=== PATIENT | female | born 1970 | race Caucasian/White ===

== ENCOUNTER 2019-05-10 07:00 | Inpatient (IN) | payer OTHER ==
[~2019-05-10] VITALS: Ht 165.1 cm; Wt 90.3 kg
== END 2019-05-17 08:46 | disposition home or self-care (01) | DRG 743 ==
LOC: EDSTATUS 07:00 → ADM 07:00 → OB/GYN 05-14 06:21 → O/R 05-14 06:21 → SURH 05-14 07:00 → OB/GYN 05-14 13:28
PROVIDERS: ADMIT Obstetrics & Gynecology
PROC: 0UT70ZZ Resection of Bilateral Fallopian Tubes, Open Approach (ICD-10-PCS; 2019-05-14)
PROC: 0UT90ZZ Resection of Uterus, Open Approach (ICD-10-PCS; principal; 2019-05-14 08:30)
DX: D25.1 Intramural leiomyoma of uterus (principal); D25.2 Subserosal leiomyoma of uterus; N80.0 Endometriosis of uterus

== ENCOUNTER 2020-03-11 05:47 | Emergency (ER) | payer OTHER ==
[~2020-03-11] VITALS: Ht 165.1 cm; Wt 90.7 kg
[2020-03-11] MEDS ORDERED: DICLOFENAC SOD100 GM (06:02)
[2020-03-11] MEDS ORDERED: HYDROXYCHLOROQ200 MG (06:02)
[2020-03-11] MEDS ORDERED: AMOX-CLAV 875-1 EACH PO (07:09)
== END 2020-03-11 07:28 | disposition home or self-care (01) ==
LOC: ER 05:47
DX: H66.92 Otitis media, unspecified, left ear (principal)

== ENCOUNTER 2020-12-29 10:45 | Inpatient (IN) | payer OTHER ==
[~2020-12-29] VITALS: Ht 165.1 cm; Wt 90.7 kg
[~2020-12-29 10:45] MED LIST: AMOX-CLAV 875-1 EACH PO; DICLOFENAC SOD100 GM; HYDROXYCHLOROQ200 MG
[2020-12-29] MEDS ORDERED: LIPITOR20 MG PO (13:35)
[2020-12-29] MEDS ORDERED: IRBESARTAN-HCT1 EACH PO (14:55)
== END 2021-01-08 10:53 | disposition home or self-care (01) | DRG 743 ==
LOC: O/R 01-05 05:57 → OB/GYN 01-05 05:57
PROVIDERS: ADMIT Obstetrics & Gynecology; ATTEND Obstetrics & Gynecology
PROC: 0UT20ZZ Resection of Bilateral Ovaries, Open Approach (ICD-10-PCS; principal; 2021-01-05 14:15)
DX: N80.1 Endometriosis of ovary (principal); N83.201 Unspecified ovarian cyst, right side; N83.01 Follicular cyst of right ovary; N83.8 Other noninflammatory disorders of ovary, fallopian tube and broad ligament; I10 Essential (primary) hypertension; E78.00 Pure hypercholesterolemia, unspecified